=== PATIENT | female | born 1980 | race Caucasian/White ===

== ENCOUNTER 2017-06-19 15:38 | Emergency (ER) | payer OTHER ==
[~2017-06-19] VITALS: Ht 162.6 cm; Wt 113.6 kg
[2017-06-19] MEDS ORDERED: FLOM5CAP PO ×2 (15:56→17:09)
[2017-06-19] MEDS ORDERED: ALEV220C2 PO (15:56)
[2017-06-19] MEDS ORDERED: toradol IM (16:19)
[2017-06-19] MEDS ORDERED: ZOFR4TAB3 PO (17:09)
[2017-06-19] MEDS ORDERED: NORCOTAB PO (17:09)
[2017-06-19] MEDS ORDERED: NAPR500T3 PO (17:09)
--- NOTE | 2017-06-19 17:09 | REP ---
CT of the abdomen pelvis without IV and oral contrast: There is a 7 x 4 mm calcification in the proximal left ureter near the left renal pelvis at the L2 level. There is left hydronephrosis. Additionally there is a nonobstructive 3 mm calculus in the upper pole of the left kidney. There are no right renal calculi. There is no right hydronephrosis. There are no bladder calculi. The visualized lung lyon are unremarkable. The unenhanced hepatic parenchyma, gallbladder, pancreas and spleen are unremarkable. The adrenals, abdominal aorta, bowel and mesentery are unremarkable. Pelvis: The appendix and is normal.. There is an IUD in the uterus. Uterus and adnexa are otherwise unremarkable. There is no adenopathy or ascites. Impression: There is a 7 x 4 mm calcification in the proximal left ureter at the L2 level and left hydronephrosis. There is a nonobstructive left renal calculus. Signed by Kelvin Frances MD 06/19/2017 05:00 P
[2017-06-19 17:15] VITALS: BP 117/89
[2017-07-11] MEDS ORDERED: ALLE180T33 PO (16:19)
== END 2017-06-19 17:34 | disposition home or self-care (01) ==
LOC: M ED 15:38
DX: N20.1 Calculus of ureter (principal); Z87.442 Personal history of urinary calculi; Z88.0 Allergy status to penicillin

== ENCOUNTER → 2017-07-02 | Outpatient (REF) | payer OTHER ==
[~2017-07-02] MED LIST: ALEV220C2 PO; ALLE180T33 PO; FLOM5CAP PO; NAPR500T3 PO; NORCOTAB PO; ZOFR4TAB3 PO; toradol IM
== END ==
LOC: M SMT 17:21
PROVIDERS: ATTEND Nurse Practitioner Women's Health
DX: N13.2 Hydronephrosis with renal and ureteral calculous obstruction (principal)

== ENCOUNTER → 2017-07-09 | Outpatient (CLI) | payer OTHER ==
--- NOTE | 2017-07-09 16:59 | REP ---
KUB: Two views. History: Hydronephrosis with urinary tract calculus. The patient reports left-sided stone. Findings: Two views of the abdomen demonstrate umbilical jewelry and an intrauterine device projecting in the mid pelvis. The bowel gas pattern is unremarkable. There is an obliquely oriented linear density just to the left of the transverse process at L3 overlying the psoas. This could reflect the proximal ureteral calculus seen on recent CT study June 19, 2017. It measures 2 x 12 mm. Impression: Equivocal 2 x 12 mm linear density at the level of the left transverse process at L3, question left ureteral calculus. IUD in place. Otherwise negative. Signed by Cricket Young MD 07/09/2017 05:01 P
== END ==
LOC: M RAD 16:15
PROVIDERS: ATTEND Nurse Practitioner Women's Health
DX: N13.2 Hydronephrosis with renal and ureteral calculous obstruction (principal)

== ENCOUNTER → 2017-07-11 | Outpatient (CLI) | payer OTHER ==
[2017-07-11 08:06] LABS: MEAN CORPUSCULAR HEMOGLOBIN 30.5 pg (27.0-33.0); MEAN CORPUSCULAR HGB CONC 34.5 g/dl (32.0-36.5); MEAN CORPUSCULAR VOLUME 88.4 fl (80.0-96.0); RED CELL DISTRIBUTION WIDTH 12.1 % (11.5-14.5); WHITE BLOOD COUNT 4.9 K/mm3 (4.0-10.0)
[2017-07-11 08:12] LABS: INR 0.92
[2017-07-11 08:21] LABS: CONTROL LINE HCG INT CTR LINE PRESENT
[2017-07-11 08:32] LABS: ANION GAP 7 MEQ/L (8-16); BLOOD UREA NITROGEN 15 MG/DL (7-18); CALCIUM LEVEL 8.8 MG/DL (8.5-10.1); CARBON DIOXIDE LEVEL 29 MEQ/L (21-32); CHLORIDE LEVEL 106 MEQ/L (98-107); CREATININE FOR GFR 0.97 MG/DL (0.55-1.02); GLOMERULAR FILTRATION RATE > 60.0 (>60); GLUCOSE, FASTING 109 MG/DL (70-105); SODIUM LEVEL 142 MEQ/L (136-145)
== END ==
LOC: M LAB 07:39
PROVIDERS: ATTEND Nurse Practitioner Women's Health
DX: Z01.818 Encounter for other preprocedural examination (principal); N13.2 Hydronephrosis with renal and ureteral calculous obstruction

== ENCOUNTER 2017-07-13 07:01 | Day surgery (SDC) | payer OTHER ==
[~2017-07-13] VITALS: Ht 165.1 cm; Wt 113.4 kg
[2017-07-13] MEDS ORDERED: LR 1,000 ML IV ONE (07:15)
[2017-07-13] MEDS ORDERED: PROPOFOL 200 MG/20 ML VIAL As Ordered ONE (07:54)
[2017-07-13] MEDS ORDERED: fentaNYL 100 MCG/2 ML INJECTION (J3010) As Ordered ONE (07:54)
[2017-07-13] MEDS ORDERED: ONDANSETRON 4MG/2ML VIAL (J2405) As Ordered ONE (07:54)
[2017-07-13] MEDS ORDERED: LIDOCAINE 2% INJ 100 MG/5 ML SDV (FOR ANES.) As Ordered ONE (07:54)
[2017-07-13] MEDS ORDERED: dexameTHASONE 4 MG/ML 1ML VIAL (J1100) As Ordered ONE (07:54)
[2017-07-13] MEDS ORDERED: MIDAZOLAM INJ 2 MG/2 ML VIAL (J2250) As Ordered ONE (07:55)
[2017-07-13] MEDS ORDERED: CONRAY-60 60% 50ML VIAL (Q9961) As Ordered ONE (10:22)
[2017-07-13] MEDS ORDERED: METOCLOPRAMIDE INJ 10MG/2ML VIAL (J2765) As Ordered ONE (11:10)
[2017-07-13] MEDS ORDERED: HYDROmorphone HCL 2 MG/ML 1ML VIAL (J1170) As Ordered ONE (11:15)
[2017-07-13] MEDS ORDERED: oxyBUTYnin 5 MG TAB PO PRN (12:00)
[2017-07-13] MEDS ORDERED: fentaNYL 100 MCG/2 ML INJECTION (J3010) IV PRN (12:00)
[2017-07-13] MEDS ORDERED: NORCO, ANEXSIA 5/325MG TABLET (HYDROcodone/ACETAMINOPHEN) PO PRN (12:00)
[2017-07-13] MEDS ORDERED: MEPERIDINE INJ 25 MG/ML VIAL (J2175) IV PRN (12:00)
[2017-07-13] MEDS ORDERED: LR 1,000 ML IV SCH (12:00)
[2017-07-13] MEDS ORDERED: PERCOCET 5MG/325MG TAB PO PRN ×2 (12:00)
[2017-07-13] MEDS ORDERED: ONDANSETRON 4MG/2ML VIAL (J2405) IV PRN (12:00)
[2017-07-13] MEDS ORDERED: METOCLOPRAMIDE INJ 10MG/2ML VIAL (J2765) IV PRN (12:00)
--- NOTE | 2017-07-13 12:07 | REP ---
C-ARM VIEWS DURING RETROGRADE PYELOGRAM: Three C-arm views are performed. There is placement of a left ureteral stent. A small amount of contrast is injected into a dilated left renal collecting system, partially opacifying it. The proximal end of the stent is coiled in the left renal pelvis. The distal end is coiled in the region of the urinary bladder. 12 seconds fluoroscopy time utilized. Signed by Kelvin Tucker MD 07/13/2017 04:43 P
[2017-07-13 14:00] VITALS: BP 133/79
--- NOTE | 2017-07-16 06:09 | RO ---
DATE OF PROCEDURE: 07/13/2017 PREPROCEDURE DIAGNOSIS: Let ureteral stone. POSTPROCEDURE DIAGNOSIS: Left ureteral stone. PROCEDURE: Cystoscopy, left ureteroscopy with laser lithotripsy and basket extraction of stones, left retrograde pyelogram with intraoperative interpretation of images, left ureteral stent placement. SURGEON: Dr. Pepe Sauer REAL ESTATE ACQUISITION ANALYST: None. ANESTHESIA: General. OPERATIVE INDICATIONS: This is a 37-year-old female who was found to have an approximately 1 cm sized obstructing left ureteral stone. It was recommended she be brought to the operating room today for the above listed procedures. DESCRIPTION OF PROCEDURE: The patient was brought to the operating room where general anesthesia was induced. Prophylactic antibiotics were infused. She was then placed in dorsal lithotomy position and prepped and draped in the usual sterile fashion. A rigid cystoscope was inserted into the urethral meatus and advanced to the bladder. Once within the bladder, a guidewire was advanced up the left collecting system. Next, a ureteral access sheath was advanced over the wire up the left collecting system. The stylet was removed and the wire was secured to the drape to serve as a safety wire. Next, we advanced the flexible ureteroscope and within the proximal ureter a 1 cm stone was seen. The stone was then fragmented into several smaller pieces using a 200 micron laser fiber. All the fragments were removed using a basket. Once done, I went in and examined the kidney thoroughly and no large stones were seen. Only tiny stone fragments were seen. The stone fragments were small enough to pass. At this point, a retrograde pyelogram was performed and it was notable for mild left hydronephrosis and no extravasation. At this point, I withdrew the ureteroscope along with the access sheath and no additional stones were seen within the ureter. I then utilized the previously placed wire to advance a 6 Urdu x 22-32 cm JJ ureteral stent up into the left collecting system. The wire was then removed and there were adequate curls of the stent in the left renal pelvis and in the bladder. The bladder was then emptied of all fluid and this marked the conclusion of the procedure. The patient was then taken out of the dorsal lithotomy position, awakened from anesthesia and transported to the recovery room in stable condition. Estimated blood loss: 0 mL. Complications: None. Specimen: Kidney stone fragments. Plan: The patient will followup in the clinic in a few weeks for stent removal.
== END 2017-07-13 14:10 | disposition home or self-care (01) ==
LOC: M SDC 07:01
PROVIDERS: ATTEND Urology
DX: N20.1 Calculus of ureter (principal); K21.9 Gastro-esophageal reflux disease without esophagitis; F41.9 Anxiety disorder, unspecified; F32.9 Major depressive disorder, single episode, unspecified; Z79.899 Other long term (current) drug therapy
CPT/HCPCS: 52356; 74420; 82360; 88300; C1769; C1894; C2617; J0690; J1100; J1170; J2250; J2405; J2765; J3010; Q9961

== ENCOUNTER → 2018-03-26 | Outpatient (REF) | payer OTHER ==
[2018-03-30 14:11] LABS: HPV HYBRID CAPTURE II Negative (Negative)
== END ==
LOC: M LAB REF 03-27 13:58
DX: Z11.51 Encounter for screening for human papillomavirus (HPV) (principal)
CPT/HCPCS: G0123

== ENCOUNTER → 2020-01-26 | Outpatient (REF) | payer OTHER ==
[~2020-01-26] MED LIST changes: +CIPR-249 PO; +FLOM0.4C39 PO; -FLOM5CAP PO; +HYDR-3715 PO; +NAPR-885 PO; -NAPR500T3 PO; -NORCOTAB PO; +ONDA4TAB6 PO; +ZOFR4TAB14 PO; -ZOFR4TAB3 PO
== END ==
LOC: M SFHCWAGY 11:21
PROVIDERS: ATTEND Advanced Practice Midwife
DX: Z12.4 Encounter for screening for malignant neoplasm of cervix (principal)
CPT/HCPCS: 87624; G0123

== ENCOUNTER 2023-06-19 14:12 | Emergency (ER) | payer OTHER, SELFPAY ==
[~2023-06-19] VITALS: Ht 165.1 cm; Wt 92.7 kg
[2023-06-19 14:13] VITALS: BP 132/84; TEMP 98.2; O2SAT 100
== END 2023-06-19 20:38 | disposition left against medical advice (07) ==
LOC: M ED 14:12
DX: Z53.21 Procedure and treatment not carried out due to patient leaving prior to being seen by health care provider (principal)

== ENCOUNTER → 2023-08-09 | Outpatient (REF) | payer SELFPAY, BC | LOC: M SMT 17:11 | PROVIDERS: ATTEND Physician Assistant | DX: N20.1 Calculus of ureter (principal) ==

== ENCOUNTER → 2024-08-06 | Outpatient (REF) | payer SELFPAY, BC ==
[~2024-08-06] MED LIST changes: +ONDA-282 PO; -ONDA4TAB6 PO
[2024-08-06 17:02] LABS: CK-MB VALUE MASS < 1.0 NG/ML (<3.6); CPK CREATINE PHOSPHOKINASE 71 U/L (34-145)
== END ==
LOC: M LAB REF 16:21
PROVIDERS: ATTEND Physician Assistant Medical
DX: R07.89 Other chest pain (principal)

== ENCOUNTER → 2024-09-04 | Outpatient (CLI) | payer BC | LOC: M PLAIMG 13:04 | PROVIDERS: ATTEND Physician Assistant | DX: N20.0 Calculus of kidney (principal) ==

== ENCOUNTER → 2024-11-13 | Outpatient (REF) | payer BC | LOC: M LAB REF 12:38 | PROVIDERS: ATTEND Physician Assistant Medical | DX: J06.9 Acute upper respiratory infection, unspecified (principal); R05.9 Cough, unspecified ==

== ENCOUNTER → 2025-08-06 | Outpatient (REF) | payer OTHER ==
[~2025-08-06] MED LIST changes: -FLOM0.4C39 PO; +TAMS-18 PO
[2025-08-06 17:58] LABS: HCG, SERUM QUANTITATIVE < 2.6 MIU/ML (<4.2)
[2025-08-06 18:27] LABS: HIV 1&2 SCREEN NEGATIVE (NEGATIVE)
[2025-08-06 18:35] LABS: HEPATITIS C VIRUS ABY INDEX < 0.02 INDEX (<0.8)
== END ==
LOC: M LAB REF 17:17
PROVIDERS: ATTEND Nurse Practitioner Adult Health
DX: Z04.2 Encounter for examination and observation following work accident (principal)

== ENCOUNTER → 2025-08-18 | Outpatient (REF) | payer OTHER, BC ==
[2025-08-18 13:13] LABS: CORTISOL AM 17.0 UG/DL (4.3-22.4)
[2025-08-18 13:15] LABS: IRON (FE) 170.0 UG/DL (50-170); PERCENT SATURATION 56.9 % (13.2-45.0)
[2025-08-18 13:18] LABS: VITAMIN B12 LEVEL 255.0 PG/ML (211-911)
== END ==
LOC: M LAB REF 12:16
PROVIDERS: ATTEND Physician Assistant Medical
DX: N95.8 Other specified menopausal and perimenopausal disorders (principal); Z98.84 Bariatric surgery status; R53.83 Other fatigue

== ENCOUNTER → 2025-11-06 | Outpatient (REF) | payer BC ==
[2025-11-06 13:29] LABS: HCG, SERUM QUANTITATIVE < 2.6 MIU/ML (<4.2)
[2025-11-06 13:58] LABS: HIV 1&2 SCREEN NEGATIVE (NEGATIVE)
[2025-11-06 14:06] LABS: HEPATITIS C VIRUS ABY INDEX < 0.02 INDEX (<0.8)
== END ==
LOC: M LAB REF 12:08
PROVIDERS: ATTEND Physician Assistant Medical
DX: Z04.2 Encounter for examination and observation following work accident (principal)